=== PATIENT | male | born 1980 | race Two or more races ===

== ENCOUNTER 2019-11-02 16:42 | Emergency (ER) | payer MEDICAID ==
[~2019-11-02] VITALS: Ht 170.2 cm; Wt 77.0 kg
[2019-11-02 16:51] VITALS: BP 128/67
== END 2019-11-02 22:00 | disposition left against medical advice (07) ==
LOC: ER 16:42
DX: Z53.21 Procedure and treatment not carried out due to patient leaving prior to being seen by health care provider (principal)